=== PATIENT | male | born 1940 | race Caucasian/White ===

== ENCOUNTER 2021-05-05 11:35 | Emergency (ER) | payer MEDICARE ==
[~2021-05-05 11:35] MED LIST: Iopamidol-370 76% 500 ML 1 ML ONE
[2021-05-05] MEDS ORDERED: Fentanyl 100 MCG/2 ML VIAL ONE ×2 (11:44→11:51)
[2021-05-05] MEDS ORDERED: EPINEPHrine 1 MG/ML VIAL ONE (11:51)
[2021-05-05] MEDS ORDERED: Midazolam HCl 2 mg/2 ml Vial ONE (11:53)
[2021-05-05] MEDS ORDERED: Fentanyl CADD 100 ML IV SCH ×2 (12:00→16:45)
[2021-05-05] MEDS ORDERED: Norepinephrine 8 MG/0.9% NS 250 ML ONE (12:05)
[2021-05-05 12:21] LABS: #Lymphocytes 0.9 thou/uL (1.20-3.40); #Monocytes 0.6 thou/uL (0.11-0.59); #Neutrophils 6.8 thou/uL (1.40-6.50); %Basophils 0.4 % (0.0-1.0); %Eosinophils 0.4 % (0.0-10.0); %Lymphocytes 10.4 % (21.0-51.0); %Monocytes 6.8 % (0.0-10.0); %Neutrophils 82.1 % (42.0-75.0); Hemoglobin 12.7 g/dL (14.0-18.0); Mean Corpuscular HGB CONC 33.9 g/dL (32.0-36.0); Mean Corpuscular Hemoglobin 30.8 pg (27.0-31.0); Mean Corpuscular Volume 90.9 fL (78.0-98.0); Mean Platelet Volume 7.4 fL (7.4-10.4); Platelet Count 205 thou/uL (130-400); RBC Distribution Width 12.9 % (11.5-14.5); Red Blood Cell (RBC) Count 4.13 mill/uL (4.70-6.10); White Blood Cell (WBC) Count 8.3 thou/uL (4.8-10.8)
[2021-05-05 12:24] LABS: Actual Bicarbonate (HCO3a) 21.3 mEq/L (22-28); Analyzer IN Cardio ER; Base Excess (BEa) -0.9 mEq/L (-2.0 to +3.0); CO2 Tension 28.4 mmHg (35.0-45.0); Calcium, Ionized (arterial) 1.12 mmol/L (1.12-1.30); Carboxyhemoglobin (COHb) 0.3 gm% (0.0-3.0); Hemoglobin (Hb) 12.7 g/dL (14.0-18.0); O2 Tension (PaO2), arterial 227.3 mmHg (> 70.0); Potassium - ABG Lab 3.02 mmol/L (3.70-5.30); pH, Arterial 7.49 (7.35-7.45)
[2021-05-05 12:26] LABS: Puncture Site RBA
[2021-05-05 12:45] LABS: Albumin 3.1 g/dL (3.4-4.8)
[2021-05-05 12:47] LABS: Calcium 8.8 mg/dL (7.8-10.44); Chloride 102 mmol/L (98-107); Potassium 3.1 mmol/L (3.5-5.1); Sodium 138 mmol/L (136-145)
[2021-05-05 12:48] LABS: Globulin 2.5 g/dL (2.4-3.5); Protein, Total 5.6 g/dL (5.8-8.1)
[2021-05-05 12:49] LABS: Carbon Dioxide 27 mmol/L (23-31)
[2021-05-05 12:50] LABS: Anion Gap 12 mmol/L (10-20); Bilirubin, Total 0.6 mg/dL (0.2-1.2)
[2021-05-05 12:51] LABS: Alkaline Phosphatase 66 U/L (40-110); Calc. Creatinine Clearance 0 mL/min (70-130)
[2021-05-05 12:52] LABS: BUN (Urea Nitrogen) 11 mg/dL (8.4-25.7); INR-International Normal Ratio 1.1; PTT 23.2 sec (22.9-36.1); Prothrombin Time 13.8 sec (12.0-14.7)
[2021-05-05 12:53] LABS: AST (SGOT) 15 U/L (5-34)
[2021-05-05 12:54] LABS: ALT (SGPT) 15 U/L (8-55)
[2021-05-05 13:14] LABS: Glucose 181 mg/dL (83-110)
[2021-05-05 13:53] LABS: SARS-CoV-2 NAA Rapid Test Not Detected (NotDetected)
[2021-05-05 15:43] LABS: Lactic Acid 1.6 mmol/L (0.5-2.2)
[2021-05-05 16:25] LABS: Troponin I 0.074 ng/mL (< 0.028)
[2021-05-05] MEDS ORDERED: Morphine 2 MG/ML VIAL SLOW IVP PRN ×2 (16:29→16:45)
[2021-05-05] MEDS ORDERED: Ondansetron PF 4 MG/2 ML Vial IVP PRN (16:29)
[2021-05-05] MEDS ORDERED: Lorazepam 2 MG/ML VIAL SLOW IVP PRN ×2 (16:29→16:45)
[2021-05-05] MEDS ORDERED: Norepinephrine 8 MG/0.9% NS 250 ML IVPB PRN (16:29)
[2021-05-05] MEDS ORDERED: Ventilator Sedation Protocol 1 EACH FS SCH (16:30)
[2021-05-05] MEDS ORDERED: DISCONTINUE PREVIOUS NARCOTIC PAIN MEDICATIONS AND BENZODIAZEPINES FS SCH (16:45)
[2021-05-05] MEDS ORDERED: Propofol BOLUS 1,000 MG/100 ML VIAL IV PRN (16:45)
[2021-05-05] MEDS ORDERED: Propofol 1,000 MG/100 ML VIAL IV PRN (16:45)
[2021-05-05] MEDS ORDERED: Fentanyl BOLUS 250 ML IVPB PRN (16:45)
[2021-05-05] MEDS ORDERED: Morphine 10 MG/ML VIAL ONE (18:41)
[2021-05-05] MEDS ORDERED: Lorazepam 2 MG/ML VIAL ONE (18:41)
[2021-05-05] MEDS ORDERED: Morphine 4 MG/ML VIAL ONE (18:41)
== END 2021-05-05 19:20 | disposition expired ==
LOC: ERS 11:35 → EDBD 11:35 → ERS 19:20
DX: R55 Syncope and collapse (principal); R40.4 Transient alteration of awareness; N40.0 Benign prostatic hyperplasia without lower urinary tract symptoms; I95.9 Hypotension, unspecified; Z85.528 Personal history of other malignant neoplasm of kidney; Z99.11 Dependence on respirator [ventilator] status; Z20.822 Contact with and (suspected) exposure to COVID-19; Z79.899 Other long term (current) drug therapy
CPT/HCPCS: 0240U; 36556; 36600; 51702; 70450; 71045; 71275; 72125; 74174; 80053; 82805; 83605; 84145; 84484 ×2; 85025; 85610; 85730; 93005; 94002; 96365; 96366; 96368; 96374; 96375; 99285; J0171; J3010; 36415; J2060; J2250; J2270; Q9967